=== PATIENT | female | born 1955 | race Caucasian/White ===

== ENCOUNTER → 2019-12-13 08:01 | Outpatient (CLI) | payer MEDICARE, OTHER, SELFPAY ==
[2019-12-13 09:29] LABS: Add Manual Diff / Slide Review NO; Basophils Absolute Auto 100 /uL (0-100); Basophils Percent Auto 1.1 % (0-2); Eosinophils Absolute Auto 100 /uL (0-450); Eosinophils Percent Auto 2.6 % (2-4); Hematocrit 38.3 % (36-46); Hemoglobin 13.1 g/dL (12.0-16.0); Lymphocytes Absolute Auto 1600 /uL (1100-4500); Lymphocytes Percent Auto 28.7 % (25-40); Mean Corpuscular HGB Conc 34.3 % (30-36); Mean Corpuscular Volume 93.5 fL (80-100); Monocytes Absolute Auto 400 /uL (0-900); Monocytes Percent Auto 7.5 % (3-14); Neutrophils Absolute Auto 3400 /uL (1500-7000); Neutrophils Percent Auto 60.1 % (50-75); Platelet Count 396 X10^3/uL (150-400); Red Cell Distribution Width 12.9 % (11.6-14.8); White Blood Cell Count 5.6 X10^3/uL (4.5-11.0)
[2019-12-13 10:03] LABS: Alanine Aminotransferase 29 IU/L (<35); Albumin 4.4 g/dL (3.5-5.0); Albumin Globulin Ratio 1.5 (1.0-2.8); Alkaline Phosphatase 85 U/L (38-126); Aspartate Aminotransferase 28 IU/L (14-36); BUN Creatinine Ratio 22.5 (6-22); Bilirubin Total 0.4 mg/dL (0.2-1.3); Blood Urea Nitrogen 16 mg/dL (7-17); Calcium 9.9 mg/dL (8.4-10.2); Carbon Dioxide 30 mmol/L (22-32); Chloride 102 mmol/L (98-107); Estimated Glomerular Filt Rate > 60.0 mL/min (>60); Glucose 110 mg/dL (80-110); HEMOLYSIS < 15 (0-50); Potassium 5.1 mmol/L (3.4-5.1); Sodium 137 mmol/L (137-145); Total Protein 7.4 g/dL (6.3-8.2)
== END ==
PROVIDERS: PCP Nurse Practitioner Family; Referring Provider Nurse Practitioner Family; Visit Provider Nurse Practitioner Family
DX: I10 Essential (primary) hypertension (principal)
CPT/HCPCS: 36415; 80053; 84443; 85025

== ENCOUNTER → 2020-01-29 10:10 | Outpatient (CLI) | payer MEDICARE, OTHER, SELFPAY ==
--- NOTE | 2020-01-29 10:12 | DI.US.S_ITS ---
PROCEDURE: US ABDOMEN COMPLETE INDICATIONS: LEFT UPPER QUADRANT PAIN TECHNIQUE: Real-time scanning was performed of the abdominal and retroperitoneal organs, with image documentation. COMPARISON: None. FINDINGS: Liver: Liver is normal in size and homogeneous in echotexture. Gallbladder: No findings of gallstones or sludge are seen. The gallbladder wall is not thickened, measuring 3 mm or less. No specific pericholecystic fluid is seen. The sonographic Sifuentes sign is negative. Biliary ducts: Intrahepatic bile ducts are non-dilated. Extrahepatic bile duct caliber measures 5 mm. Normal is 6-7 mm or less in diameter, or 10 mm or less post-cholecystectomy. Pancreas: Visualized portions of the pancreas are sonographically normal. Spleen: Spleen is normal in size and homogeneous in echotexture. Kidneys: Kidneys are normal in size and echotexture. Right kidney measures 9.3 cm long; left kidney measures 10.3 cm long. No hydronephrosis or nephrolithiasis. No solid masses. Cortex Aorta: Visualized aorta is normal in caliber at less than 3 cm. Iliacs: Proximal common iliac arteries are normal in caliber at less than 2.5 cm. IVC: Not seen, obscured by overlying bowel gas. Miscellaneous: No free abdominal fluid. IMPRESSION: Negative ultrasound, without an imaging explanation found for the patient's presenting history of left upper quadrant pain. Normal appearing, normal sized spleen. Normal left kidney, without hydronephrosis. Dictated by: Victor M Best M.D. on 01/29/2020 at 12:35 Approved by: Victor M Best M.D. on 01/29/2020 at 12:36
--- NOTE | 2020-01-29 10:12 | DI.MG.S_ITS ---
BILATERAL DIGITAL SCREENING MAMMOGRAM 3D/2D WITH CAD: 01/29/2020 CLINICAL: Routine screening. Family history of breast cancer. Comparison is made to exams dated: 12/07/2016 mammogram and 12/18/2015 mammogram - outside location. There are scattered fibroglandular elements in both breasts. Current study was also evaluated with a Computer Aided Detection (CAD) system. No significant masses, calcifications, or other findings are seen in either breast. There has been no significant interval change. IMPRESSION: NEGATIVE There is no mammographic evidence of malignancy. A 1 year screening mammogram is recommended. This exam was interpreted at Station ID: [id number]. NOTE: For mammograms, a report in lay terms will be sent to the patient. Approximately 15% of breast malignancies will not be visualized mammographically. In the management of a palpable breast mass, a negative mammogram must not discourage biopsy of a clinically suspicious lesion. Electronically Signed By: Tye carson/rudolph:01/29/2020 13:12:30 letter sent: Normal Exam ACR BI-RADS Category 1: Negative 3341F
--- NOTE | 2020-01-29 10:12 | DI.RAD.S_ITS ---
PROCEDURE: XR DEXA AXIAL SKELETON INDICATIONS: screening COMPARISON: None. FINDINGS: This blank DEXA report has been sent in error by the PACS system. The correct and complete report will be forthcoming in 1-2 days. Thank you for your patience and understanding. Dictated by: Stephanie Hanna MD, PhD on 01/29/2020 at 17:20 Approved by: Stephanie Hanna MD, PhD on 01/29/2020 at 17:20
[2020-01-29 14:03] LABS: Hematocrit 40.9 % (36-46); Hemoglobin 13.5 g/dL (12.0-16.0); Mean Corpuscular Hemoglobin 31.5 PG (26-34); Mean Corpuscular Volume 95.2 fL (80-100); Platelet Count 396 X10^3/uL (150-400); Red Blood Cell Count 4.29 X10^6/uL (4.0-5.2); Red Cell Distribution Width 15.4 % (11.6-14.8); White Blood Cell Count 5.6 X10^3/uL (4.5-11.0)
[2020-01-29 14:38] LABS: Alanine Aminotransferase 22 IU/L (<35); Albumin 4.3 g/dL (3.5-5.0); Albumin Globulin Ratio 1.4 (1.0-2.8); Alkaline Phosphatase 94 U/L (38-126); Aspartate Aminotransferase 28 IU/L (14-36); BUN Creatinine Ratio 26.9 (6-22); Bilirubin Total 0.6 mg/dL (0.2-1.3); Blood Urea Nitrogen 18 mg/dL (7-17); Calcium 9.7 mg/dL (8.4-10.2); Carbon Dioxide 30 mmol/L (22-32); Chloride 102 mmol/L (98-107); Cholesterol 195 mg/dL (140-199); Estimated Glomerular Filt Rate > 60.0 mL/min (>60); Globulin 3.1 g/dL (1.7-4.1); Glucose 98 mg/dL (80-110); HDL Cholesterol 101 mg/dL (40-60); HEMOLYSIS < 15 (0-50); LDL Cholesterol Calculated 73 mg/dL (<100); Potassium 4.8 mmol/L (3.4-5.1); Sodium 135 mmol/L (137-145); Total Protein 7.4 g/dL (6.3-8.2); Triglycerides 106 mg/dL (35-150)
== END ==
PROVIDERS: PCP Nurse Practitioner Family; Referring Provider Nurse Practitioner Family; Visit Provider Nurse Practitioner Family
DX: Z12.31 Encounter for screening mammogram for malignant neoplasm of breast; Z80.3 Family history of malignant neoplasm of breast; M85.851 Other specified disorders of bone density and structure, right thigh; Z78.0 Asymptomatic menopausal state; R10.12 Left upper quadrant pain; I10 Essential (primary) hypertension; R42 Dizziness and giddiness; Z13.6 Encounter for screening for cardiovascular disorders; Z00.00 Encounter for general adult medical examination without abnormal findings; Z90.722 Acquired absence of ovaries, bilateral; Z87.891 Personal history of nicotine dependence
CPT/HCPCS: 36415; 76700; 77063; 77067; 77080; 80053; 80061; 85027

== ENCOUNTER → 2020-12-17 11:10 | Outpatient (CLI) | payer MEDICARE, OTHER, SELFPAY ==
[2020-12-17 12:00] LABS: Hematocrit 40.9 % (36-46); Hemoglobin 13.9 g/dL (12.0-16.0); Mean Corpuscular HGB Conc 33.9 % (30-36); Mean Corpuscular Hemoglobin 32.9 PG (26-34); Platelet Count 360 X10^3/uL (150-400); Red Blood Cell Count 4.22 X10^6/uL (4.0-5.2); Red Cell Distribution Width 13.9 % (11.6-14.8); White Blood Cell Count 5.3 X10^3/uL (4.5-11.0)
[2020-12-17 12:35] LABS: Alanine Aminotransferase 23 IU/L (<35); Albumin 4.8 g/dL (3.5-5.0); Albumin Globulin Ratio 1.5 (1.0-2.8); Alkaline Phosphatase 67 U/L (38-126); Aspartate Aminotransferase 30 IU/L (14-36); Bilirubin Total 0.5 mg/dL (0.2-1.3); Blood Urea Nitrogen 20 mg/dL (7-17); Calcium 10.5 mg/dL (8.4-10.2); Carbon Dioxide 35 mmol/L (22-32); Chloride 100 mmol/L (98-107); Estimated Glomerular Filt Rate > 60.0 mL/min (>60); Globulin 3.1 g/dL (1.7-4.1); Glucose 108 mg/dL (80-110); HEMOLYSIS 17 (0-50); Potassium 4.8 mmol/L (3.4-5.1); Sodium 140 mmol/L (137-145); Total Protein 7.9 g/dL (6.3-8.2)
== END ==
PROVIDERS: PCP Nurse Practitioner Family; Referring Provider Nurse Practitioner Family; Visit Provider Nurse Practitioner Family
DX: I10 Essential (primary) hypertension (principal)
CPT/HCPCS: 36415; 80053; 85027

== ENCOUNTER → 2021-01-30 11:29 | Outpatient (CLI) | payer MEDICARE, OTHER, SELFPAY ==
[2021-01-30 14:14] LABS: HEMOLYSIS < 15 (0-50); Iron 128 ug/dL (37-170)
[2021-01-30 14:25] LABS: Percent Iron Saturation 49 % (15-50); Total Iron Binding Capacity 260 ug/dL (265-497); Transferrin 234 mg/dL (206-381)
[2021-01-30 14:33] LABS: Free T4, Direct Thyroxine 0.95 ng/dL (0.78-2.19)
[2021-01-30 14:47] LABS: Thyroid Stimulating Hormone 2.86 uIU/mL (0.47-4.68)
[2021-01-30 18:25] LABS: Vitamin D 25 Hydroxy (D3) 57.2 ng/mL (30.0-100.0)
[2021-01-30 18:44] LABS: Ferritin 237 ng/mL (11-264)
== END ==
PROVIDERS: PCP Nurse Practitioner Family; Referring Provider Nurse Practitioner Family; Visit Provider Nurse Practitioner Family
DX: L65.9 Nonscarring hair loss, unspecified (principal); M85.80 Other specified disorders of bone density and structure, unspecified site
CPT/HCPCS: 36415; 82306; 82728; 83540; 83550; 84439; 84443

== ENCOUNTER → 2021-09-16 13:32 | Outpatient (CLI) | payer MEDICARE, OTHER, SELFPAY ==
[2021-09-16 14:55] LABS: COVID19 -Nasal RAPID Negative (Negative)
== END ==
PROVIDERS: Family Provider Nurse Practitioner; PCP Nurse Practitioner; Visit Provider Surgery
DX: Z20.822 Contact with and (suspected) exposure to COVID-19 (principal); Z01.812 Encounter for preprocedural laboratory examination
CPT/HCPCS: 87635; C9803

== ENCOUNTER 2021-09-17 13:27 | Day surgery (SDC) | payer MEDICARE, OTHER, SELFPAY ==
[2021-09-17 13:43] VITALS: BP 155/89; PULSE 77; RESP 18; TEMP 36.4; O2SAT 99
[2021-09-17] MEDS: LACTATED RINGERS 1,000 ML 84 ML IV (13:43)
[2021-09-17 13:44] VITALS: BMI 25.8
--- NOTE | 2021-09-17 15:23 | PM.HP.1 ---
History of Present Illness History of Present Illness Date Patient Seen: 09/17/21 Time Patient Seen: 15:24 Chief complaint: [facility] Narrative: Hannah is a 65-year-old woman who is here for colonoscopy. She had a colonoscopy 10 or 15 years ago with no polyps found. Patient History Medical History Acne (~1968) Essential hypertension (2005) Fibroids (~2000) Hair loss (09/2020) Hx of rotator cuff tear (2012) Intermittent left upper quadrant abdominal pain (08/2019) Intermittent lightheadedness Osteopenia (01/2020) Post-menopausal Shoulder pain (~2017) Vertigo (~2014) Wears glasses Weight gain Surgical History Anesthesia Hx of hysterectomy (2003) Hx of repair of rotator cuff (2012) Family & Social History Family History Father Age: 93 Diabetes mellitus Pacemaker Stroke Mother Cancer Brother No problems noted. Grandfather Diabetes mellitus Hypertension Hyperlipidemia Social History: household members spouse Tobacco & Substance use: Smoking Status Former smoker alcohol intake current Substance Use Type does not use Meds Home Medications and Allergies Home Medications Medication Instructions Recorded Confirmed Type Magnesium PO DAILY 12/12/19 07/20/21 History Vitamin B12 PO DAILY 12/12/19 07/20/21 History Vitamin C PO 12/12/19 07/20/21 History Vitamin D3 PO DAILY 12/12/19 07/20/21 History Zinc PO DAILY 12/12/19 07/20/21 History aspirin 81 mg tablet,delayed 81 mg PO DAILY 12/12/19 09/17/21 History release (Adult Aspirin Regimen) milk thistle PO DAILY 12/12/19 07/20/21 History multivitamin 1 tab PO DAILY 12/12/19 07/20/21 History losartan 50 mg tablet 50 mg PO DAILY #90 tabs 07/20/21 07/20/21 Rx Allergies Allergy/AdvReac Type Severity Reaction Status Date / Time No Known Allergies Allergy Uncoded 09/17/21 13:37 Exam Vital Signs (past 8 hours): - 09/17/21 13:43 Temperature 97.6 F Pulse Rate 77 Respiratory Rate 18 Blood Pressure 155/89 H Pulse Oximetry 99 Oxygen Delivery Method Room Air Oxygen Delivery Method Room Air Const General: No acute distress Resp Effort & Inspection: normal respiratory effort GI Palpation: soft Assessment & Plan Assessment and plan (1) Colon cancer screening: Status: Acute Plan 65-year-old woman due for colon cancer screening. We reviewed the risks and benefits of colonoscopy and she would like to proceed. Time Spent With Patient Critical Care time: I spent a total of [] minutes of critical care time on this patient's care today; this time is exclusive of procedural time.
[2021-09-17] MEDS: MIDAZOLAM 5 MG/5 ML VIAL 7 MG IV (15:41)
[2021-09-17] MEDS: fentaNYL 250 MCG/5 ML INJ 175 MCG IV (15:43)
--- NOTE | 2021-09-17 15:54 | PM.OP.COLON ---
Operative Date/Time/Diagnoses Date of procedure: 09/17/21 Time of procedure: 15:54 Pre-op diagnosis: Colon cancer screening Post-op diagnosis: same Procedure & Clinicians Study performed: Colonoscopy Same procedure as scheduled: Yes Surgeon: Tristen Ochoa Procedure Notes Procedure in detail: Surgeon: Tristen Ochoa MD Procedure: The patient was brought to the endoscopy suite, placed in left lateral decubitus position. The patient was connected to monitoring devices. A time-out was performed. Sedation was administered. Once the patient was adequately sedated, a digital rectal exam was performed and was normal. The scope was then inserted and advanced to the cecum where the appendiceal orifice was identified and photographed. The scope was then slowly withdrawn over greater than 6 minutes. The mucosa was thoroughly inspected. No abnormalities were noted. The scope was retroflexed in the rectum. No abnormalities were noted. The scope was straightened and removed. The patient was awakened and brought to recovery. Versed: 7 mg Fentanyl: 175 mcg EBL: 0 Findings: Normal colon Scope withdrawal time: 8 Sedation minutes: 22 Post-procedure Recommendations: Colonoscopy in 10 years Disposition: PACU
[2021-09-17 15:57] VITALS: BP 121/76; PULSE 77; RESP 14; TEMP 36.9; O2SAT 97
[2021-09-17 16:02] VITALS: BP 133/81; PULSE 77; RESP 14; O2SAT 98
[2021-09-17 16:07] VITALS: BP 134/82; PULSE 74; RESP 16; O2SAT 100
[2021-09-17 16:19] VITALS: BP 133/80; PULSE 71; RESP 16; O2SAT 100
--- NOTE | 2021-09-17 16:21 | SUR.PHASEII ---
Discharge instructions reviewed with pt, and time allowed for questions. Pt left unit A&Ox4, via w/c with all personal belongings.
== END 2021-09-17 16:22 | disposition home or self-care (01) ==
PROVIDERS: Family Provider Nurse Practitioner; PCP Nurse Practitioner; Referring Provider Surgery; Visit Provider Surgery
PROC: 0DJD8ZZ Inspection of Lower Intestinal Tract, Via Natural or Artificial Opening Endoscopic (ICD-10-PCS; CPT 45378; principal; 2021-09-17 14:30)
DX: Z12.11 Encounter for screening for malignant neoplasm of colon (principal)
CPT/HCPCS: G0105; 99152; J2250; J3010

== ENCOUNTER → 2021-10-07 14:03 | Outpatient (CLI) | payer MEDICARE, OTHER, SELFPAY ==
--- NOTE | 2021-10-07 14:05 | DI.MG.S_ITS ---
BILATERAL DIGITAL SCREENING MAMMOGRAM 3D/2D WITH CAD: 10/07/2021 CLINICAL: Routine screening. Family history of breast cancer. Comparison is made to exams dated: 01/29/2020 mammogram - [facility], 12/07/2016 mammogram, and 12/18/2015 mammogram - outside location. The tissue of both breasts is heterogeneously dense. This may lower the sensitivity of mammography. Current study was also evaluated with a Computer Aided Detection (CAD) system. No significant masses, calcifications, or other findings are seen in either breast. There has been no significant interval change. IMPRESSION: NEGATIVE There is no mammographic evidence of malignancy. A 1 year screening mammogram is recommended. Based on Tyrer-Cuzick model (a risk assessment model), the patient's lifetime risk is 22.0% and her 10 year risk is 11.5%. If a patient has an elevated risk, a more comprehensive evaluation should be considered and/or a referral to a genetic counselor. The [place] [employer], [place] [employer], and NCCN Guidelines advise the consideration of Breast MRI as an adjunct to screening mammography in patients whose Lifetime risk to develop breast cancer is 20% or higher. This exam was interpreted at Station ID: [id number]. NOTE: For mammograms, a report in lay terms will be sent to the patient. Approximately 15% of breast malignancies will not be visualized mammographically. In the management of a palpable breast mass, a negative mammogram must not discourage biopsy of a clinically suspicious lesion. Electronically Signed By: Dheeraj hylton/rudolph:10/07/2021 17:49:12 letter sent: Normal Exam ACR BI-RADS Category 1: Negative [id number]
== END ==
PROVIDERS: Family Provider Nurse Practitioner; PCP Nurse Practitioner; Referring Provider Nurse Practitioner; Visit Provider Nurse Practitioner
DX: Z12.31 Encounter for screening mammogram for malignant neoplasm of breast; Z80.3 Family history of malignant neoplasm of breast; Z13.820 Encounter for screening for osteoporosis; M85.851 Other specified disorders of bone density and structure, right thigh; M85.852 Other specified disorders of bone density and structure, left thigh; Z78.0 Asymptomatic menopausal state
CPT/HCPCS: 77063; 77067; 77080

== ENCOUNTER 2021-11-03 11:15 | Outpatient (RCR) | payer MEDICARE, OTHER, SELFPAY ==
--- NOTE | 2021-10-06 11:22 | PT.OIE ---
Current Diagnoses Low back pain, unspecified (10/06/21) Pain in right leg (10/06/21) Past Medical History (Last Reviewed 09/17/21 @ 13:37 by Hannah Lepe RN) Acne (~1968) Essential hypertension (2005) Fibroids (~2000) Hair loss (09/2020) Hx of rotator cuff tear (2012) Intermittent left upper quadrant abdominal pain (08/2019) Intermittent lightheadedness Osteopenia (01/2020) Post-menopausal Shoulder pain (~2017) Vertigo (~2014) Wears glasses Weight gain Past Surgical History (Last Reviewed 07/20/21 @ 13:00 by DAPHNE Pretty) Anesthesia Hx of hysterectomy (2003) Hx of repair of rotator cuff (2012) Visit Care Team Role Provider Type DAPHNE Pretty Attending Provider Advanced Cable Engineer Family Provider Primary Care Provider Referring Provider Specialty: Family Practice Address: [address] [place] [address] Email: [email or web address] Physical Therapy Initial Evaluation PT-OP-A Visit Information Start: 10/06/21 08:03 Freq: Status: Active Protocol: Document 10/06/21 11:22 [facility] (Rec: 10/07/21 16:45 [facility] [id number]) Out-Patient Physical Therapy Visit Information Visit Information Visit Type Initial Evaluation Visit Start Time 11:17 Visit Stop Time 12:02 Total Visit Minutes 45 Visit Number 1 Evaluation Information Evaluation Date 10/06/21 Precautions Precautions osteopenia PT-OP-B Current Condition Start: 10/06/21 08:03 Freq: Status: Active Protocol: Document 10/06/21 11:22 [facility] (Rec: 10/06/21 12:06 [facility] [id number]) Current Condition History of Current Condition Onset Date 1 1/2 years ago Current Complaints lateral right thigh pain History of Current Condition comes and goes throughout the day and while in bed. Can't pinpoint what inc or dec pain. Hasn't tried ice or heat or medications Prior Treatments and Tests No imaging Future Testing and Treatments Planned No further appointment scheduled with physician Treatment Goals Patient/Caregiver Goals eliminate pain, be able to sleep through the night, do usual activities without pain. Prior Functional Status Baseline Function- ADL's Independent Baseline Function- Mobility Independent Baseline Function- Gait indep Baseline Function- Work/School retired, worked in [employer] industry in [place] PT-OP-C Subjective Start: 10/06/21 08:03 Freq: Status: Active Protocol: Document 10/06/21 11:22 [facility] (Rec: 10/07/21 17:09 [facility] [id number]) Patient Questionnaires Oswestry Low Back Index Oswestry Score 14 PT-OP-H Neuro Start: 10/06/21 08:03 Freq: Status: Active Protocol: Document 10/06/21 11:22 [facility] (Rec: 10/07/21 17:09 [facility] [id number]) Sensation Evaluation Gross Sensation Gross Sensation WNL Comments Summary Comments denies N/T PT-OP-J Posture/Palpation/Skin Start: 10/06/21 08:03 Freq: Status: Active Protocol: Document 10/06/21 11:22 [facility] (Rec: 10/07/21 17:09 [facility] [id number]) Posture Evaluation Position Standing Head/C-Spine Posture Forward Head T-Spine Posture Increased Kyphosis L-Spine Posture Shifted Right Scapula Posture (R) Protracted,(L) Retracted Arm Posture (L) Internally Rotated,(R) Internally Rotated Pelvis Posture Anteriorly Tilted Weight Distribution Weight Shifted Right Ankle/Foot Posture (L) Pronated,(R) Pronated Foot Arch (L) Low Arch,(R) Low Arch Palpation Assessment Location IT band Palpation Location rodolfo Palpation Findings Tenderness SI Palpation Location right Palpation Details no tenderness today PT-OP-K Range of Motion Start: 10/06/21 08:03 Freq: Status: Active Protocol: Document 10/06/21 11:22 [facility] (Rec: 10/07/21 17:09 [facility] [id number]) Lumbar Spine Range of Motion Lumbar Spine Active Flexion 40 Extension 15 Rotation Left 30 Rotation Right 30 Lateral Flexion Left 25 Lateral Flexion Right 25 Comments pain with right sidebending and forward flexion Hip Goniometric Range of Motion Hip rodolfo Comments mod piriformis tightness right greater than left, mild hamstring tightness left greater than right Hip ROM Limitations Hip ROM Limitations Soft Tissue Tightness,Pain PT-OP-L Special Tests Start: 10/06/21 08:03 Freq: Status: Active Protocol: Document 10/06/21 11:22 [facility] (Rec: 10/07/21 17:09 [facility] [id number]) Special Tests Lumbar Spine Special Tests Manual Traction Test Results negative Straight Leg Raise Test Results negative Compression Test Results negative PT-OP-M Strength Start: 10/06/21 08:03 Freq: Status: Active Protocol: Document 10/06/21 11:22 [facility] (Rec: 10/07/21 17:09 [facility] [id number]) Hip Strength Hip Manual Muscle Testing Right Flexion (L2) 4- Good- Extension (S1) 3+ Fair+ Abduction 4- Good- External Rotation 3+ Fair+ Internal Rotation 4 Good Left Flexion (L2) 4- Good- Extension (S1) 3+ Fair+ Abduction 4- Good- External Rotation 4- Good- Internal Rotation 4 Good Knee Strength Knee Manual Muscle Testing Right Flexion (S2) 4 Good Extension (L3) 4 Good Left Flexion (S2) 5 Normal Extension (L3) 5 Normal Ankle/Foot Strength Ankle and Foot Manual Muscle Testing Right Dorsiflexion (L4) 4 Good Plantarflexion (S1) 4 Good Left Dorsiflexion (L4) 5 Normal Plantarflexion (S1) 5 Normal PT-OP-Q Treatments Start: 10/06/21 08:03 Freq: Status: Active Protocol: Document 10/06/21 11:22 [facility] (Rec: 10/07/21 17:09 [facility] [id number]) Self-Care/Home Management Treatment Education Patient Education Body Mechanics,Home Exercise Program,Posture Activities Self-Care/Home Management Activities self assessment of habitual postures and movements PT-OP-T Assessment and Plan Start: 10/06/21 08:03 Freq: Status: Active Protocol: Document 10/06/21 11:22 [facility] (Rec: 10/06/21 12:06 [facility] [id number]) Physical Therapy Assessment Rehab Potential Rehabilitation Potential Good Evaluation Complexity Number of Personal Factors/Comorbidities 1-2 Number of Body Systems Impaired 3 Clinical Presentation at Evaluation Evolving Impairments Impairments Activity Tolerance,Pain, Strength Goals Three Impairment habitual body positioning contributing to pain and dysfunction Short Term Goal (STG) Patient to do self-assessment regarding her habitual positioning and movement and discuss with PT STG Duration 10/19/21 [facility] Goal (LTG) Patient will demonstrate good awareness and self-correction of habitual positioning and movements contributing to her pain LTG Duration 12/06/21 Two Impairment weakness rodolfo LE's and core, dec ROM Impairment no HEP Short Term Goal (STG) Patient will be instructed in progressiveHEP to address weakness and decreased flexibility STG Duration 10/19/21 Early Childhood Associate Goal (LTG) Patient to be independent and compliant with HEP and demonstrate improved strength to at least 4+/5 all muscle groups in core and hips, and flexiblity WNL for improved support and function of core and hips. LTG Duration 12/06/21 One Impairment pain right lateral thigh Impairment pain as high as 6/10 Short Term Goal (STG) Decrease intensity and frequency of pain by 50% STG Duration 11/05/21 Early Childhood Associate Goal (LTG) Pain no higher than 2/10 with patient able to sleep through the night and resume prior level of function. LTG Duration 12/06/21 Assessment Summary Assessment Patient presents to PT with funciton-limiting pain in her right lateral thigh of unknown origin and denies any accident or trauma. 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 Also was observed only crossing right leg over left throughout session , reports she wasn't aware of that habit but can see how habitual posturing and movement could contribute to her pain. Has osteopenia, history LBP, arthritis in hands. Pain into buttock with FF and right sidebending. NOt tender SI joint but has been in past. Weak hip ER, flexors, abductors, extensors tight IT band left, tenderness right greater than left IT band. Feel she would benefit from PT for flexibility and strengthening, patient education, manual techniques and modalities as needed to reduce her pain and return her to her prior level of function. Discussed POC and patient is in agreement. Physical Therapy Plan Frequency and Duration Frequency of Treatment 2x/Week Duration of Treatment 8 weeks Plan of Care Start Date 10/06/21 Plan of Care End Date 12/06/21 Therapeutic Interventions Therapeutic Interventions Aquatic Therapy,Home Exercise Program,Manual Therapy, Neuromuscular Re-education, Patient/Caregiver Education, Self-Care/Home Management,Soft Tissue Mobilization,Taping, Therapeutic Activities, Therapeutic Exercises Modalities Cold Pack/Ice Massage,Electric Stimulation,Hot Packs, Infrared Therapy,Traction- Mechanical,Ultrasound Next Visit Focus/Plan Next Note Type Treatment Note Next Visit Plan Review HEP, discuss any identified habitual postures or movements, initiate core strengthening, add clamshells. Possible manual therapy to IT band. Modalities as needed for pain.
--- NOTE | 2021-10-06 11:22 | PT.OPPOC ---
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 Family Provider Primary Care Provider Referring Provider Specialty: Family Practice Address: [address] [place] [address], [facility] Email: [email or web address] Plan Of Care PT-OP-T Assessment and Plan Start: 10/06/21 08:03 Freq: Status: Active Protocol: Document 10/06/21 11:22 [facility] (Rec: 10/06/21 12:06 [facility] [id number]) Physical Therapy Assessment Rehab Potential Rehabilitation Potential Good Evaluation Complexity Number of Personal Factors/Comorbidities 1-2 Number of Body Systems Impaired 3 Clinical Presentation at Evaluation Evolving Impairments Impairments Activity Tolerance,Pain, Strength Goals Three Impairment habitual body positioning contributing to pain and dysfunction Short Term Goal (STG) Patient to do self-assessment regarding her habitual positioning and movement and discuss with PT STG Duration 10/19/21 [facility] Goal (LTG) Patient will demonstrate good awareness and self-correction of habitual positioning and movements contributing to her pain LTG Duration 12/06/21 Two Impairment weakness rodolfo LE's and core, dec ROM Impairment no HEP Short Term Goal (STG) Patient will be instructed in progressiveHEP to address weakness and decreased flexibility STG Duration 10/19/21 [facility] Goal (LTG) Patient to be independent and compliant with HEP and demonstrate improved strength to at least 4+/5 all muscle groups in core and hips, and flexiblity WNL for improved support and function of core and hips. LTG Duration 12/06/21 One Impairment pain right lateral thigh Impairment pain as high as 6/10 Short Term Goal (STG) Decrease intensity and frequency of pain by 50% STG Duration 11/05/21 [facility] Goal (LTG) Pain no higher than 2/10 with patient able to sleep through the night and resume prior level of function. LTG Duration 12/06/21 Assessment Summary Assessment Patient presents to PT with funciton-limiting pain in her right lateral thigh of unknown origin and denies any accident or trauma. 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 Also was observed only crossing right leg over left throughout session , reports she wasn't aware of that habit but can see how habitual posturing and movement could contribute to her pain. Has osteopenia, history LBP, arthritis in hands. Pain into buttock with FF and right sidebending. NOt tender SI joint but has been in past. Weak hip ER, flexors, abductors, extensors tight IT band left, tenderness right greater than left IT band. Feel she would benefit from PT for flexibility and strengthening, patient education, manual techniques and modalities as needed to reduce her pain and return her to her prior level of function. Discussed POC and patient is in agreement. Physical Therapy Plan Frequency and Duration Frequency of Treatment 2x/Week Duration of Treatment 8 weeks Plan of Care Start Date 10/06/21 Plan of Care End Date 12/06/21 Therapeutic Interventions Therapeutic Interventions Aquatic Therapy,Home Exercise Program,Manual Therapy, Neuromuscular Re-education, Patient/Caregiver Education, Self-Care/Home Management,Soft Tissue Mobilization,Taping, Therapeutic Activities, Therapeutic Exercises Modalities Cold Pack/Ice Massage,Electric Stimulation,Hot Packs, Infrared Therapy,Traction- Mechanical,Ultrasound Next Visit Focus/Plan Next Note Type Treatment Note Next Visit Plan Review HEP, discuss any identified habitual postures or movements, initiate core strengthening, add clamshells. Possible manual therapy to IT band. Modalities as needed for pain. Plan of Care Dates Plan of Care Start Date 10/06/21 Plan of Care End Date 12/06/21 Electronically Signed by: Claudette Bennett, PT 10/07/21 [id number] If you are in agreement with this Plan of Care, please return a signed and dated copy. I have reviewed this Plan of Care and certify that the skilled therapy services above are required to meet the patient?s needs. Physician Signature Date Printed Name and Credentials Clinical Instructor Signature Printed Name and Credentials
--- NOTE | 2021-10-08 13:44 | PT.OTN ---
Current Diagnoses Low back pain, unspecified (10/08/21) Pain in right leg (10/08/21) Physical Therapy Treatment Note PT-OP-A Visit Information Start: 10/06/21 08:03 Freq: Status: Active Protocol: Document 10/08/21 11:24 SAK (Rec: 10/08/21 12:01 [facility] [id number]) Out-Patient Physical Therapy Visit Information Visit Information Visit Type Treatment Note Visit Start Time 11:20 Visit Stop Time 12:00 Total Visit Minutes 40 Visit Number 2 Evaluation Information Evaluation Date 10/06/21 Precautions Precautions osteopenia PT-OP-B Current Condition Start: 10/06/21 08:03 Freq: Status: Active Protocol: Document 10/08/21 11:24 SAK (Rec: 10/08/21 12:01 [facility] [id number]) Current Condition History of Current Condition Onset Date 1 1/2 years ago Current Complaints lateral right thigh pain History of Current Condition comes and goes throughout the day and while in bed. Can't pinpoint what inc or dec pain. Hasn't tried ice or heat or medications Prior Treatments and Tests No imaging Future Testing and Treatments Planned No further appointment scheduled with physician PT-OP-C Subjective Start: 10/06/21 08:03 Freq: Status: Active Protocol: Document 10/06/21 11:22 SAK (Rec: 10/07/21 17:09 [facility] [id number]) Patient Questionnaires Oswestry Low Back Index Oswestry Score 14 PT-OP-H Neuro Start: 10/06/21 08:03 Freq: Status: Active Protocol: Document 10/06/21 11:22 SAK (Rec: 10/07/21 17:09 [facility] [id number]) Sensation Evaluation Gross Sensation Gross Sensation WNL Comments Summary Comments denies N/T PT-OP-J Posture/Palpation/Skin Start: 10/06/21 08:03 Freq: Status: Active Protocol: Document 10/06/21 11:22 SAK (Rec: 10/07/21 17:09 [facility] [id number]) Posture Evaluation Position Standing Head/C-Spine Posture Forward Head T-Spine Posture Increased Kyphosis L-Spine Posture Shifted Right Scapula Posture (R) Protracted,(L) Retracted Arm Posture (L) Internally Rotated,(R) Internally Rotated Pelvis Posture Anteriorly Tilted Weight Distribution Weight Shifted Right Ankle/Foot Posture (L) Pronated,(R) Pronated Foot Arch (L) Low Arch,(R) Low Arch Palpation Assessment Location IT band Palpation Location rodolfo Palpation Findings Tenderness SI Palpation Location right Palpation Details no tenderness today PT-OP-K Range of Motion Start: 10/06/21 08:03 Freq: Status: Active Protocol: Document 10/06/21 11:22 [facility] (Rec: 10/07/21 17:09 [facility] [id number]) Lumbar Spine Range of Motion Lumbar Spine Active Flexion 40 Extension 15 Rotation Left 30 Rotation Right 30 Lateral Flexion Left 25 Lateral Flexion Right 25 Comments pain with right sidebending and forward flexion Hip Goniometric Range of Motion Hip rodolfo Comments mod piriformis tightness right greater than left, mild hamstring tightness left greater than right Hip ROM Limitations Hip ROM Limitations Soft Tissue Tightness,Pain PT-OP-L Special Tests Start: 10/06/21 08:03 Freq: Status: Active Protocol: Document 10/06/21 11:22 [facility] (Rec: 10/07/21 17:09 [facility] [id number]) Special Tests Lumbar Spine Special Tests Manual Traction Test Results negative Straight Leg Raise Test Results negative Compression Test Results negative PT-OP-M Strength Start: 10/06/21 08:03 Freq: Status: Active Protocol: Document 10/06/21 11:22 [facility] (Rec: 10/07/21 17:09 [facility] [id number]) Hip Strength Hip Manual Muscle Testing Right Flexion (L2) 4- Good- Extension (S1) 3+ Fair+ Abduction 4- Good- External Rotation 3+ Fair+ Internal Rotation 4 Good Left Flexion (L2) 4- Good- Extension (S1) 3+ Fair+ Abduction 4- Good- External Rotation 4- Good- Internal Rotation 4 Good Knee Strength Knee Manual Muscle Testing Right Flexion (S2) 4 Good Extension (L3) 4 Good Left Flexion (S2) 5 Normal Extension (L3) 5 Normal Ankle/Foot Strength Ankle and Foot Manual Muscle Testing Right Dorsiflexion (L4) 4 Good Plantarflexion (S1) 4 Good Left Dorsiflexion (L4) 5 Normal Plantarflexion (S1) 5 Normal PT-OP-Q Treatments Start: 10/06/21 08:03 Freq: Status: Active Protocol: Document 10/08/21 11:24 [facility] (Rec: 10/08/21 12:01 [facility] [id number]) Cardio Equipment Recumbent Stepper (Sci-Fit) Duration (Minutes) 6 Resistance 1 Seat Position 10 Other cues for neutral LE alignment, second 3 min LE's only Therapeutic Exercises Supine Exercises bridge Reps/Minutes 10x Comments cues for core activation straight leg raise Reps/Minutes 10x Comments cues for push down opp LE, core act ball squeeze Reps/Minutes 10x Comments cues for neutral spine, core activation, neutral LE's Sidelying Exercises hiip abduction Reps/Minutes 10x Comments cues for pain-free ROM and relax left shoulder down clamshell Reps/Minutes 10 Comments cues for core activation, no movement of body, difficult on right Standing Exercises hc stretch Standing Exercise Name tried lunge stretch but painful right buttock and excess IR right hip Reps/Minutes 2x30 Comments stair or wall, heel on ground unil Manual Therapy Treatment Soft Tissue Mobilization IT band Mobilization Type Instrument Assisted,Myofascial Release,Rolling Self-Care/Home Management Treatment Education Patient Education Body Mechanics,Home Exercise Program,Pain Management, Posture PT-OP-T Assessment and Plan Start: 10/06/21 08:03 Freq: Status: Active Protocol: Document 10/08/21 11:24 [facility] (Rec: 10/08/21 12:01 [facility] [id number]) Physical Therapy Assessment Goals Three Impairment habitual body positioning contributing to pain and dysfunction Short Term Goal (STG) Patient to do self-assessment regarding her habitual positioning and movement and discuss with PT STG Duration 10/19/21 Jail Goal (LTG) Patient will demonstrate good awareness and self-correction of habitual positioning and movements contributing to her pain LTG Duration 12/06/21 Two Impairment weakness rodolfo LE's and core, dec ROM Impairment no HEP Short Term Goal (STG) Patient will be instructed in progressiveHEP to address weakness and decreased flexibility STG Duration 10/19/21 Phd Intern Goal (LTG) Patient to be independent and compliant with HEP and demonstrate improved strength to at least 4+/5 all muscle groups in core and hips, and flexiblity WNL for improved support and function of core and hips. LTG Duration 12/06/21 One Impairment pain right lateral thigh Impairment pain as high as 6/10 Short Term Goal (STG) Decrease intensity and frequency of pain by 50% STG Duration 11/05/21 Phd Intern Goal (LTG) Pain no higher than 2/10 with patient able to sleep through the night and resume prior level of function. LTG Duration 12/06/21 Assessment Summary Assessment Good tolerance for ther ex. Moderate cues for LE alignment , ,noting exess hip IR with lunge on right LE, patient reports due to prior ankle fracture that wasn't set right ; this apears to be highly contributory to patient pain. Mod cues for core activation and stabilization with all ther ex. Physical Therapy Plan Frequency and Duration Frequency of Treatment 2x/Week Duration of Treatment 8 weeks Plan of Care Start Date 10/06/21 Plan of Care End Date 12/06/21 Therapeutic Interventions Therapeutic Interventions Aquatic Therapy,Home Exercise Program,Manual Therapy, Neuromuscular Re-education, Patient/Caregiver Education, Self-Care/Home Management,Soft Tissue Mobilization,Taping, Therapeutic Activities, Therapeutic Exercises Modalities Cold Pack/Ice Massage,Electric Stimulation,Hot Packs, Infrared Therapy,Traction- Mechanical,Ultrasound Next Visit Focus/Plan Next Note Type Treatment Note Next Visit Plan Asses response to today's treatment, review HEP, progress core strengthening and , hip strengthening. Sport cord trial.
--- NOTE | 2021-10-15 11:16 | PT-OP ANOTE ---
cancelled due to missing ferry
--- NOTE | 2021-10-27 12:22 | PT.OTN ---
Current Diagnoses Low back pain, unspecified (10/27/21) Pain in right leg (10/27/21) Physical Therapy Treatment Note PT-OP-A Visit Information Start: 10/06/21 08:03 Freq: Status: Active Protocol: Document 10/27/21 12:11 SAK (Rec: 10/27/21 12:21 [facility] [id number]) Out-Patient Physical Therapy Visit Information Visit Information Visit Type Treatment Note Visit Start Time 11:20 Visit Stop Time 12:05 Total Visit Minutes 45 Visit Number 3 Evaluation Information Evaluation Date 10/06/21 Precautions Precautions osteopenia PT-OP-B Current Condition Start: 10/06/21 08:03 Freq: Status: Active Protocol: Document 10/08/21 11:24 SAK (Rec: 10/08/21 12:01 [facility] [id number]) Current Condition History of Current Condition Onset Date 1 1/2 years ago Current Complaints lateral right thigh pain History of Current Condition comes and goes throughout the day and while in bed. Can't pinpoint what inc or dec pain. Hasn't tried ice or heat or medications Prior Treatments and Tests No imaging Future Testing and Treatments Planned No further appointment scheduled with physician PT-OP-C Subjective Start: 10/06/21 08:03 Freq: Status: Active Protocol: Document 10/27/21 12:11 SAK (Rec: 10/27/21 12:21 [facility] [id number]) OP-PT Subjective Patient Comments Patient Comments Doing exercises every other day, maybe just a little better, not sure. Likes rolling pin, has done at home and is considering muscle gun. PT-OP-H Neuro Start: 10/06/21 08:03 Freq: Status: Active Protocol: Document 10/06/21 11:22 SAK (Rec: 10/07/21 17:09 [facility] [id number]) Sensation Evaluation Gross Sensation Gross Sensation WNL Comments Summary Comments denies N/T PT-OP-J Posture/Palpation/Skin Start: 10/06/21 08:03 Freq: Status: Active Protocol: Document 10/06/21 11:22 SAK (Rec: 10/07/21 17:09 [facility] [id number]) Posture Evaluation Position Standing Head/C-Spine Posture Forward Head T-Spine Posture Increased Kyphosis L-Spine Posture Shifted Right Scapula Posture (R) Protracted,(L) Retracted Arm Posture (L) Internally Rotated,(R) Internally Rotated Pelvis Posture Anteriorly Tilted Weight Distribution Weight Shifted Right Ankle/Foot Posture (L) Pronated,(R) Pronated Foot Arch (L) Low Arch,(R) Low Arch Palpation Assessment Location IT band Palpation Location rodoflo Palpation Findings Tenderness SI Palpation Location right Palpation Details no tenderness today PT-OP-K Range of Motion Start: 10/06/21 08:03 Freq: Status: Active Protocol: Document 10/06/21 11:22 [facility] (Rec: 10/07/21 17:09 [facility] [id number]) Lumbar Spine Range of Motion Lumbar Spine Active Flexion 40 Extension 15 Rotation Left 30 Rotation Right 30 Lateral Flexion Left 25 Lateral Flexion Right 25 Comments pain with right sidebending and forward flexion Hip Goniometric Range of Motion Hip rodolfo Comments mod piriformis tightness right greater than left, mild hamstring tightness left greater than right Hip ROM Limitations Hip ROM Limitations Soft Tissue Tightness,Pain PT-OP-L Special Tests Start: 10/06/21 08:03 Freq: Status: Active Protocol: Document 10/06/21 11:22 [facility] (Rec: 10/07/21 17:09 [facility] [id number]) Special Tests Lumbar Spine Special Tests Manual Traction Test Results negative Straight Leg Raise Test Results negative Compression Test Results negative PT-OP-M Strength Start: 10/06/21 08:03 Freq: Status: Active Protocol: Document 10/06/21 11:22 [facility] (Rec: 10/07/21 17:09 [facility] [id number]) Hip Strength Hip Manual Muscle Testing Right Flexion (L2) 4- Good- Extension (S1) 3+ Fair+ Abduction 4- Good- External Rotation 3+ Fair+ Internal Rotation 4 Good Left Flexion (L2) 4- Good- Extension (S1) 3+ Fair+ Abduction 4- Good- External Rotation 4- Good- Internal Rotation 4 Good Knee Strength Knee Manual Muscle Testing Right Flexion (S2) 4 Good Extension (L3) 4 Good Left Flexion (S2) 5 Normal Extension (L3) 5 Normal Ankle/Foot Strength Ankle and Foot Manual Muscle Testing Right Dorsiflexion (L4) 4 Good Plantarflexion (S1) 4 Good Left Dorsiflexion (L4) 5 Normal Plantarflexion (S1) 5 Normal PT-OP-Q Treatments Start: 10/06/21 08:03 Freq: Status: Active Protocol: Document 10/27/21 12:11 [facility] (Rec: 10/27/21 12:21 [facility] [id number]) Cardio Equipment Recumbent Stepper (Sci-Fit) Duration (Minutes) 8 Resistance 1 Seat Position 10 Other cues for neutral LE alignment, second 4 min LE's only Therapeutic Exercises Sitting Exercises HC stretch Reps/Minutes 2x30 HS stretch Reps/Minutes 2x30 Standing Exercises squat Equipment Used mirror, yardstick Reps/Minutes 12x Comments visual, verbal, and tactile cues for hip hinge, knee behind toes monster walks Standing Exercise Name fwd,bck,sideways Reps/Minutes 10'x2 each Manual Therapy Treatment Soft Tissue Mobilization IT band Body Location also lateral quad and lateral hamstring Mobilization Type Instrument Assisted,Myofascial Release,Rolling Taping IT band Body Location right Treatment Focus inhibition and pain management Type of Tape kinesiotape Skin Inspection intact Comments instrsucted to remove if uncomfortable or itchy, remove no less than 5 days Self-Care/Home Management Treatment Education Patient Education Body Mechanics,Home Exercise Program,Pain Management, Posture Other Education updated HEP PT-OP-T Assessment and Plan Start: 10/06/21 08:03 Freq: Status: Active Protocol: Document 10/27/21 12:11 [facility] (Rec: 10/27/21 12:21 [facility] [id number]) Physical Therapy Assessment Impairments Impairments Activity Tolerance,Pain, Strength Goals Three Impairment habitual body positioning contributing to pain and dysfunction Short Term Goal (STG) Patient to do self-assessment regarding her habitual positioning and movement and discuss with PT STG Duration 10/19/21 Truck Bench Mechanic Goal (LTG) Patient will demonstrate good awareness and self-correction of habitual positioning and movements contributing to her pain LTG Duration 12/06/21 Two Impairment weakness rodolfo LE's and core, dec ROM Impairment no HEP Short Term Goal (STG) Patient will be instructed in progressiveHEP to address weakness and decreased flexibility STG Duration 10/19/21 Truck Bench Mechanic Goal (LTG) Patient to be independent and compliant with HEP and demonstrate improved strength to at least 4+/5 all muscle groups in core and hips, and flexiblity WNL for improved support and function of core and hips. LTG Duration 12/06/21 One Impairment pain right lateral thigh Impairment pain as high as 6/10 Short Term Goal (STG) Decrease intensity and frequency of pain by 50% STG Duration 11/05/21 [facility]iary Goal (LTG) Pain no higher than 2/10 with patient able to sleep through the night and resume prior level of function. LTG Duration 12/06/21 Assessment Summary Assessment Improved stretch achieved with seated hamstring stretch with df for HC stretch as well, emphasized neutral and IR position for stretch. Also bijan redding walks all direction well and added to HEP. Trial kinesiotape for inhibition IT band. Physical Therapy Plan Frequency and Duration Frequency of Treatment 2x/Week Duration of Treatment 8 weeks Plan of Care Start Date 10/06/21 Plan of Care End Date 12/06/21 Therapeutic Interventions Therapeutic Interventions Aquatic Therapy,Home Exercise Program,Manual Therapy, Neuromuscular Re-education, Patient/Caregiver Education, Self-Care/Home Management,Soft Tissue Mobilization,Taping, Therapeutic Activities, Therapeutic Exercises Modalities Cold Pack/Ice Massage,Electric Stimulation,Hot Packs, Infrared Therapy,Traction- Mechanical,Ultrasound Next Visit Focus/Plan Next Note Type Treatment Note Next Visit Plan Continue therapeutic exercise progression, manual techniques to decrease pain, improve activity tolerance. Consider adding squats (pain-free ROM) to HEP if improved performance
--- NOTE | 2021-11-03 12:14 | PT.OTN ---
Current Diagnoses Low back pain, unspecified (11/03/21) Pain in right leg (11/03/21) Physical Therapy Treatment Note PT-OP-A Visit Information Start: 10/06/21 08:03 Freq: Status: Active Protocol: Document 11/03/21 11:20 [facility]AK (Rec: 11/03/21 12:13 [facility] [id number]) Out-Patient Physical Therapy Visit Information Visit Information Visit Type Treatment Note Visit Start Time 11:20 Visit Stop Time 12:05 Total Visit Minutes 45 Visit Number 4 Precautions Precautions osteopenia PT-OP-B Current Condition Start: 10/06/21 08:03 Freq: Status: Active Protocol: Document 10/08/21 11:24 SAK (Rec: 10/08/21 12:01 [facility] [id number]) Current Condition History of Current Condition Onset Date 1 1/2 years ago Current Complaints lateral right thigh pain History of Current Condition comes and goes throughout the day and while in bed. Can't pinpoint what inc or dec pain. Hasn't tried ice or heat or medications Prior Treatments and Tests No imaging Future Testing and Treatments Planned No further appointment scheduled with physician PT-OP-C Subjective Start: 10/06/21 08:03 Freq: Status: Active Protocol: Document 11/03/21 11:20 [facility] (Rec: 11/03/21 12:13 [facility] [id number]) OP-PT Subjective Patient Comments Patient Comments Hasn't had much time to work on herself due to 's issues and having company. PT-OP-H Neuro Start: 10/06/21 08:03 Freq: Status: Active Protocol: Document 10/06/21 11:22 [facility] (Rec: 10/07/21 17:09 [facility] [id number]) Sensation Evaluation Gross Sensation Gross Sensation WNL Comments Summary Comments denies N/T PT-OP-J Posture/Palpation/Skin Start: 10/06/21 08:03 Freq: Status: Active Protocol: Document 10/06/21 11:22 [facility] (Rec: 10/07/21 17:09 [facility] [id number]) Posture Evaluation Position Standing Head/C-Spine Posture Forward Head T-Spine Posture Increased Kyphosis L-Spine Posture Shifted Right Scapula Posture (R) Protracted,(L) Retracted Arm Posture (L) Internally Rotated,(R) Internally Rotated Pelvis Posture Anteriorly Tilted Weight Distribution Weight Shifted Right Ankle/Foot Posture (L) Pronated,(R) Pronated Foot Arch (L) Low Arch,(R) Low Arch Palpation Assessment Location IT band Palpation Location rodolfo Palpation Findings Tenderness SI Palpation Location right Palpation Details no tenderness today PT-OP-K Range of Motion Start: 10/06/21 08:03 Freq: Status: Active Protocol: Document 10/06/21 11:22 [facility] (Rec: 10/07/21 17:09 [facility] [id number]) Lumbar Spine Range of Motion Lumbar Spine Active Flexion 40 Extension 15 Rotation Left 30 Rotation Right 30 Lateral Flexion Left 25 Lateral Flexion Right 25 Comments pain with right sidebending and forward flexion Hip Goniometric Range of Motion Hip rodolfo Comments mod piriformis tightness right greater than left, mild hamstring tightness left greater than right Hip ROM Limitations Hip ROM Limitations Soft Tissue Tightness,Pain PT-OP-L Special Tests Start: 10/06/21 08:03 Freq: Status: Active Protocol: Document 10/06/21 11:22 [facility] (Rec: 10/07/21 17:09 [facility] [id number]) Special Tests Lumbar Spine Special Tests Manual Traction Test Results negative Straight Leg Raise Test Results negative Compression Test Results negative PT-OP-M Strength Start: 10/06/21 08:03 Freq: Status: Active Protocol: Document 10/06/21 11:22 [facility] (Rec: 10/07/21 17:09 [facility] [id number]) Hip Strength Hip Manual Muscle Testing Right Flexion (L2) 4- Good- Extension (S1) 3+ Fair+ Abduction 4- Good- External Rotation 3+ Fair+ Internal Rotation 4 Good Left Flexion (L2) 4- Good- Extension (S1) 3+ Fair+ Abduction 4- Good- External Rotation 4- Good- Internal Rotation 4 Good Knee Strength Knee Manual Muscle Testing Right Flexion (S2) 4 Good Extension (L3) 4 Good Left Flexion (S2) 5 Normal Extension (L3) 5 Normal Ankle/Foot Strength Ankle and Foot Manual Muscle Testing Right Dorsiflexion (L4) 4 Good Plantarflexion (S1) 4 Good Left Dorsiflexion (L4) 5 Normal Plantarflexion (S1) 5 Normal PT-OP-Q Treatments Start: 10/06/21 08:03 Freq: Status: Active Protocol: Document 11/03/21 11:20 [facility] (Rec: 11/03/21 12:13 [facility] [id number]) Cardio Equipment Recumbent Stepper (Sci-Fit) Duration (Minutes) 8 Resistance 1.5 Seat Position 10 Other cues for neutral LE alignment, second 4 min LE's only Gym Equipment Shuttle Balance chains red Details EO bal and wt shift Therapeutic Exercises Standing Exercises squat Equipment Used mirror, yardstick Reps/Minutes 12x Comments visual, verbal, and tactile cues for hip hinge, knee behind toes monster walks Standing Exercise Name HEP; bought own bands Manual Therapy Treatment Soft Tissue Mobilization IT band Body Location also lateral quad and lateral hamstring Mobilization Type Instrument Assisted,Myofascial Release,Rolling Taping IT band Comments not done, patient not sure helpful Self-Care/Home Management Treatment Education Patient Education Body Mechanics,Home Exercise Program,Pain Management, Posture Other Education updated HEP PT-OP-R Modalities Start: 10/06/21 08:03 Freq: Status: Active Protocol: Document 11/03/21 11:20 [facility] (Rec: 11/03/21 12:13 [facility] [id number]) Hot Pack/Cold Pack Treatment Hot Pack Patient Position Sidelying Treatment Duration (minutes) 15 Patient Tolerance Good PT-OP-T Assessment and Plan Start: 10/06/21 08:03 Freq: Status: Active Protocol: Document 11/03/21 11:20 [facility] (Rec: 11/03/21 12:13 [facility] [id number]) Physical Therapy Assessment Impairments Impairments Activity Tolerance,Pain, Strength Goals Three Impairment habitual body positioning contributing to pain and dysfunction Short Term Goal (STG) Patient to do self-assessment regarding her habitual positioning and movement and discuss with PT STG Duration 10/19/21 Senior Living Goal (LTG) Patient will demonstrate good awareness and self-correction of habitual positioning and movements contributing to her pain LTG Duration 12/06/21 Two Impairment weakness rodolfo LE's and core, dec ROM Impairment no HEP Short Term Goal (STG) Patient will be instructed in progressiveHEP to address weakness and decreased flexibility STG Duration 10/19/21 Chief Development Officer Goal (LTG) Patient to be independent and compliant with HEP and demonstrate improved strength to at least 4+/5 all muscle groups in core and hips, and flexiblity WNL for improved support and function of core and hips. LTG Duration 12/06/21 One Impairment pain right lateral thigh Impairment pain as high as 6/10 Short Term Goal (STG) Decrease intensity and frequency of pain by 50% STG Duration 11/05/21 Chief Development Officer Goal (LTG) Pain no higher than 2/10 with patient able to sleep through the night and resume prior level of function. LTG Duration 12/06/21 Assessment Summary Assessment Patient demonstrating improving body awareness, reporting less time at 6/10 pain. Not much time to do HEP or self-massage due to 's health issues as well as company. Physical Therapy Plan Frequency and Duration Frequency of Treatment 2x/Week Duration of Treatment 8 weeks Plan of Care Start Date 10/06/21 Plan of Care End Date 12/06/21 Therapeutic Interventions Therapeutic Interventions Aquatic Therapy,Home Exercise Program,Manual Therapy, Neuromuscular Re-education, Patient/Caregiver Education, Self-Care/Home Management,Soft Tissue Mobilization,Taping, Therapeutic Activities, Therapeutic Exercises Modalities Cold Pack/Ice Massage,Electric Stimulation,Hot Packs, Infrared Therapy,Traction- Mechanical,Ultrasound Next Visit Focus/Plan Next Note Type Treatment Note Next Visit Plan Continue therapeutic exercise progression, manual techniques to decrease pain, improve activity tolerance.
--- NOTE | 2022-01-27 10:47 | PT.OPDS ---
Current Diagnoses Low back pain, unspecified (11/03/21) Pain in right leg (11/03/21) Visit Care Team Role Provider Type DAPHNE Pretty Attending Provider [employer] Family Provider Primary Care Provider Referring Provider Specialty: [facility] Practice Address: [address] [place] [address], [facility] Email: [email or web address] Visit Number Visit Number 4 Discharge Summary PT-OP-B Current Condition Start: 10/06/21 08:03 Freq: Status: Active Protocol: Document 10/08/21 11:24 SAK (Rec: 10/08/21 12:01 [facility] [id number]) Current Condition History of Current Condition Onset Date 1 1/2 years ago Current Complaints lateral right thigh pain History of Current Condition comes and goes throughout the day and while in bed. Can't pinpoint what inc or dec pain. Hasn't tried ice or heat or medications Prior Treatments and Tests No imaging Future Testing and Treatments Planned No further appointment scheduled with physician PT-OP-C Subjective Start: 10/06/21 08:03 Freq: Status: Active Protocol: Document 11/03/21 11:20 SAK (Rec: 11/03/21 12:13 [facility] [id number]) OP-PT Subjective Patient Comments Patient Comments Hasn't had much time to work on herself due to 's issues and having company. PT-OP-H Neuro Start: 10/06/21 08:03 Freq: Status: Active Protocol: Document 10/06/21 11:22 SAK (Rec: 10/07/21 17:09 [facility] [id number]) Sensation Evaluation Gross Sensation Gross Sensation WNL Comments Summary Comments denies N/T PT-OP-J Posture/Palpation/Skin Start: 10/06/21 08:03 Freq: Status: Active Protocol: Document 10/06/21 11:22 SAK (Rec: 10/07/21 17:09 [facility] [id number]) Posture Evaluation Position Standing Head/C-Spine Posture Forward Head T-Spine Posture Increased Kyphosis L-Spine Posture Shifted Right Scapula Posture (R) Protracted,(L) Retracted Arm Posture (L) Internally Rotated,(R) Internally Rotated Pelvis Posture Anteriorly Tilted Weight Distribution Weight Shifted Right Ankle/Foot Posture (L) Pronated,(R) Pronated Foot Arch (L) Low Arch,(R) Low Arch Palpation Assessment Location IT band Palpation Location rodolfo Palpation Findings Tenderness SI Palpation Location right Palpation Details no tenderness today PT-OP-K Range of Motion Start: 10/06/21 08:03 Freq: Status: Active Protocol: Document 10/06/21 11:22 [facility] (Rec: 10/07/21 17:09 [facility] [id number]) Lumbar Spine Range of Motion Lumbar Spine Active Flexion 40 Extension 15 Rotation Left 30 Rotation Right 30 Lateral Flexion Left 25 Lateral Flexion Right 25 Comments pain with right sidebending and forward flexion Hip Goniometric Range of Motion Hip rodolfo Comments mod piriformis tightness right greater than left, mild hamstring tightness left greater than right Hip ROM Limitations Hip ROM Limitations Soft Tissue Tightness,Pain PT-OP-L Special Tests Start: 10/06/21 08:03 Freq: Status: Active Protocol: Document 10/06/21 11:22 [facility] (Rec: 10/07/21 17:09 [facility] [id number]) Special Tests Lumbar Spine Special Tests Manual Traction Test Results negative Straight Leg Raise Test Results negative Compression Test Results negative PT-OP-M Strength Start: 10/06/21 08:03 Freq: Status: Active Protocol: Document 10/06/21 11:22 [facility] (Rec: 10/07/21 17:09 [facility] [id number]) Hip Strength Hip Manual Muscle Testing Right Flexion (L2) 4- Good- Extension (S1) 3+ Fair+ Abduction 4- Good- External Rotation 3+ Fair+ Internal Rotation 4 Good Left Flexion (L2) 4- Good- Extension (S1) 3+ Fair+ Abduction 4- Good- External Rotation 4- Good- Internal Rotation 4 Good Knee Strength Knee Manual Muscle Testing Right Flexion (S2) 4 Good Extension (L3) 4 Good Left Flexion (S2) 5 Normal Extension (L3) 5 Normal Ankle/Foot Strength Ankle and Foot Manual Muscle Testing Right Dorsiflexion (L4) 4 Good Plantarflexion (S1) 4 Good Left Dorsiflexion (L4) 5 Normal Plantarflexion (S1) 5 Normal PT-OP-T Assessment and Plan Start: 10/06/21 08:03 Freq: Status: Active Protocol: Document 01/27/22 10:46 [facility] (Rec: 01/27/22 10:47 [facility] [id number]) Physical Therapy Plan Discharge Physical Therapy Discharge Reasons Patient Request Discharge Comments unable to attend due to dealing with 's medical issues.
== END 2022-02-02 09:37 | disposition home or self-care (01) ==
LOC: PHYS 11:15
PROVIDERS: Family Provider Nurse Practitioner; PCP Nurse Practitioner; Referring Provider Nurse Practitioner; Visit Provider Nurse Practitioner
DX: M54.50 Low back pain, unspecified (principal); M79.604 Pain in right leg
CPT/HCPCS: 97110; 97140; 97161; 97535

== ENCOUNTER → 2022-05-05 11:16 | Outpatient (CLI) | payer MEDICARE, OTHER, SELFPAY ==
[2022-05-05 12:54] LABS: Alanine Aminotransferase 32 IU/L (<35); Albumin 4.4 g/dL (3.5-5.0); Albumin Globulin Ratio 1.5 (1.0-2.8); Alkaline Phosphatase 78 U/L (38-126); Aspartate Aminotransferase 33 IU/L (14-36); BUN Creatinine Ratio 21.1 (6-22); Bilirubin Total 0.4 mg/dL (0.2-1.3); Blood Urea Nitrogen 16 mg/dL (7-17); Calcium 9.6 mg/dL (8.4-10.2); Carbon Dioxide 31 mmol/L (22-32); Chloride 99 mmol/L (98-107); Estimated Glomerular Filt Rate > 60 mL/min (>60); Globulin 2.9 g/dL (1.7-4.1); Glucose 147 mg/dL (80-110); HEMOLYSIS < 15 (0-50); Potassium 4.6 mmol/L (3.4-5.1); Sodium 136 mmol/L (137-145); Total Protein 7.3 g/dL (6.3-8.2)
[2022-05-05 13:07] LABS: Free T3, Triiodothyronine Free 4.41 pg/mL (2.77-5.27)
[2022-05-05 13:20] LABS: Thyroid Stimulating Hormone 2.75 uIU/mL (0.47-4.68)
[2022-05-05 16:06] LABS: Creatinine Urine Random 152.4 mg/dL
[2022-05-05 16:19] LABS: Microalbumin Urine Random < 0.6 mg/dL (0-1.6)
[2022-05-06 16:29] LABS: Hep C Virus Ab w/Reflex Quant NEGATIVE s/c (NEGATIVE)
== END ==
PROVIDERS: Family Provider Nurse Practitioner; PCP Nurse Practitioner; Referring Provider Nurse Practitioner; Visit Provider Nurse Practitioner
DX: I10 Essential (primary) hypertension (principal); M85.80 Other specified disorders of bone density and structure, unspecified site; Z11.59 Encounter for screening for other viral diseases; Z79.899 Other long term (current) drug therapy
CPT/HCPCS: 36415; 80053; 82043; 82570; 84439; 84443; 84481; 86803

== ENCOUNTER → 2022-08-12 08:24 | Outpatient (CLI) | payer MEDICARE, OTHER, SELFPAY ==
[2022-08-12 09:26] LABS: Alanine Aminotransferase 31 IU/L (<35); Albumin 4.6 g/dL (3.5-5.0); Albumin Globulin Ratio 1.5 (1.0-2.8); Alkaline Phosphatase 82 U/L (38-126); Aspartate Aminotransferase 32 IU/L (14-36); BUN Creatinine Ratio 27.4 (6-22); Bilirubin Total 0.4 mg/dL (0.2-1.3); Blood Urea Nitrogen 17 mg/dL (7-17); Calcium 9.4 mg/dL (8.4-10.2); Carbon Dioxide 29 mmol/L (22-32); Chloride 101 mmol/L (98-107); Cholesterol 214 mg/dL (140-199); Estimated Glomerular Filt Rate > 60 mL/min (>60); Glucose 115 mg/dL (80-110); HDL Cholesterol 106 mg/dL (40-60); HEMOLYSIS < 15 (0-50); LDL Cholesterol Calculated 94 mg/dL (<100); Potassium 4.5 mmol/L (3.4-5.1); Sodium 137 mmol/L (137-145); Total Protein 7.6 g/dL (6.3-8.2); Triglycerides 72 mg/dL (35-150)
[2022-08-13 05:47] LABS: Labcorp Hemoglobin (Hb) A1c 5.4 % (4.8-5.6)
== END ==
PROVIDERS: Family Provider Nurse Practitioner; PCP Nurse Practitioner; Referring Provider Nurse Practitioner; Visit Provider Nurse Practitioner
DX: E78.2 Mixed hyperlipidemia; I10 Essential (primary) hypertension; R73.01 Impaired fasting glucose
CPT/HCPCS: 36415; 80053; 80061; 83036

== ENCOUNTER → 2022-11-09 13:13 | Outpatient (CLI) | payer MEDICARE, OTHER, SELFPAY ==
--- NOTE | 2022-11-09 | DI.MG.S_ITS ---
BILATERAL DIGITAL SCREENING MAMMOGRAM 3D/2D WITH CAD: 11/09/2022 CLINICAL: Routine screening. Family history of breast cancer. Comparison is made to exams dated: 10/07/2021 mammogram, 01/29/2020 mammogram - [facility], and 12/07/2016 mammogram - outside location. Both breasts are heterogeneously dense, which may obscure small masses (category c / 51-75% glandular tissue). Current study was also evaluated with a Computer Aided Detection (CAD) system. No significant masses, calcifications, or other findings are seen in either breast. IMPRESSION: NEGATIVE There is no mammographic evidence of malignancy. A 1 year screening mammogram is recommended. Based on Tyrer-Cuzick model (a risk assessment model), the patient's lifetime risk is 20.0% and her 10 year risk is 11.4%. If a patient has an elevated risk, a more comprehensive evaluation should be considered and/or a referral to a genetic counselor. The [employer], [employer], and NCCN Guidelines advise the consideration of Breast MRI as an adjunct to screening mammography in patients whose Lifetime risk to develop breast cancer is 20% or higher. This exam was interpreted at Station ID: [id number]. NOTE: For mammograms, a report in lay terms will be sent to the patient. Approximately 15% of breast malignancies will not be visualized mammographically. In the management of a palpable breast mass, a negative mammogram must not discourage biopsy of a clinically suspicious lesion. Electronically Signed By: Andrew luna/rudolph:11/09/2022 17:41:30 letter sent: Normal Exam ACR BI-RADS Category 1: Negative 3341F
== END ==
PROVIDERS: Family Provider Nurse Practitioner; PCP Nurse Practitioner; Referring Provider Nurse Practitioner; Visit Provider Nurse Practitioner
DX: Z12.31 Encounter for screening mammogram for malignant neoplasm of breast (principal); Z80.3 Family history of malignant neoplasm of breast
CPT/HCPCS: 77063; 77067

== ENCOUNTER → 2023-01-13 16:29 | Outpatient (CLI) | payer MEDICARE, OTHER, SELFPAY ==
--- NOTE | 2023-01-13 16:35 | DI.RAD.S_ITS ---
PROCEDURE: XR HIP W PEL IF DONE RT 2V INDICATIONS: chronic pain to gluteal area TECHNIQUE: AP pelvis with lateral view(s) of the right hip(s). COMPARISON: None. FINDINGS: Bones: No fractures or dislocations. Pelvic ring appears intact. No suspicious bony lesions mild right hip osteoarthritis with osseous hypertrophy.. Soft tissues: The visualized bowel gas pattern is normal. No suspicious soft tissue calcifications. IMPRESSION: Mild right hip osteoarthritis. Dictated by: Stephanie Hanna MD, PhD on 01/13/2023 at 16:51 Approved by: Stephanie Hanna MD, PhD on 01/13/2023 at 16:51
== END ==
PROVIDERS: Family Provider Nurse Practitioner; PCP Nurse Practitioner; Referring Provider Physician Assistant; Visit Provider Physician Assistant
DX: M16.11 Unilateral primary osteoarthritis, right hip (principal); M25.551 Pain in right hip
CPT/HCPCS: 73502

== ENCOUNTER → 2023-02-21 12:30 | Outpatient (CLI) | payer MEDICARE, OTHER, SELFPAY ==
--- NOTE | 2023-02-21 12:32 | DI.MRI.S_ITS ---
PROCEDURE: MR HIP RT WO CON INDICATIONS: eval/treat TECHNIQUE: Noncontrast coronal T1 spin echo and STIR through the bony pelvis. Coronal and axial T2 fast spin echo with fat saturation, sagittal T1 spin echo, and oblique axial T2 fast spin echo with fat saturation through the hip. COMPARISON: None. FINDINGS: Image quality: Excellent. Bones and joints: Nivx-bn-ylvbywly bilateral hip joint osteoarthritic changes are seen with superior joint space narrowing, subchondral sclerosis and small lateral marginal osteophyte formation. There is mild prominence of superior anterior right femoral head neck junction which can be seen associated with CAM type femoral acetabular impingement. No intraosseous lesions or fractures. No avascular necrosis of the femoral heads. The visualized lower lumbar spine appears normally aligned. Tendons and ligaments: Distal right gluteus medius tendinosis and low-grade partial-thickness tear at its insertion on greater trochanter is seen. Distal right gluteus minimus tendinosis is also seen. The nearby proximal iliotibial band also appears intact. The iliopsoas tendon appears intact, without adjacent bursal fluid collections or evidence for impingement syndrome. Mild tendinosis involving origins of the hamstring tendons at ischial tuberosity is also noted. Labrum and cartilage: Mild thinning of cartilage over right femoral head is seen. Subtle fraying of superior anterior right hip labrum at 1 to 2 o'clock position concerning for very subtle superior anterior right hip labral tear. The alpha angle of the femur is within normal limits at less than 55 degrees. Soft tissues: Visualized muscles demonstrate normal bulk and internal signal. Quadratus femoris muscle demonstrates no internal edema to suggest ischiofemoral impingement. The proximal sciatic neurovascular bundle appears normal adjacent to the hamstring tendons. No free pelvic fluid. Bladder wall thickness is normal. Genitourinary structures and bowel loops appear normal where visualized. IMPRESSION: 1. Finding is concerning for subtle superior anterior right hip labral tear at 1 to 2 o'clock position. 2. Idpr-fn-iebqjusu bilateral hip joint osteoarthritis. No hip fracture or dislocation. No evidence of avascular necrosis. Mild prominence of superior anterior right femoral head neck junction which can be seen associated with CAM type femoral acetabular impingement. 3. Distal right gluteus medius tendinosis and low-grade partial-thickness tear and distal right gluteus minimus tendinosis. Tendinosis also seen involving hamstring origins at right ischial tuberosity. No other muscle or tendon signal abnormalities. Dictated by: Josh Rangel M.D. on 02/21/2023 at 14:35 Approved by: Josh Rangel M.D. on 02/21/2023 at 14:47
== END ==
PROVIDERS: Family Provider Nurse Practitioner; PCP Nurse Practitioner; Referring Provider Physician Assistant; Visit Provider Physician Assistant
DX: S76.011A Strain of muscle, fascia and tendon of right hip, initial encounter (principal); M16.0 Bilateral primary osteoarthritis of hip; M25.551 Pain in right hip
CPT/HCPCS: 73721

== ENCOUNTER → 2023-08-03 07:15 | Outpatient (CLI) | payer MEDICARE, OTHER, SELFPAY ==
[2023-08-03 07:58] LABS: Hemoglobin A1C% w Est Avg Glu 5.2 % (4.0-6.0)
[2023-08-03 08:19] LABS: Alanine Aminotransferase 21 IU/L (<35); Albumin 4.3 g/dL (3.5-5.0); Albumin Globulin Ratio 1.6 (1.0-2.8); Alkaline Phosphatase 59 U/L (38-126); Aspartate Aminotransferase 25 IU/L (14-36); BUN Creatinine Ratio 26.3 (6-22); Bilirubin Total 0.4 mg/dL (0.2-1.3); Blood Urea Nitrogen 20 mg/dL (7-17); Calcium 9.3 mg/dL (8.4-10.2); Carbon Dioxide 28 mmol/L (22-32); Chloride 107 mmol/L (98-107); Cholesterol 186 mg/dL (140-199); Estimated Glomerular Filt Rate > 60 mL/min (>60); Globulin 2.7 g/dL (1.7-4.1); Glucose 90 mg/dL (80-110); HDL Cholesterol 84 mg/dL (40-60); HEMOLYSIS < 15 (0-50); LDL Cholesterol Calculated 83 mg/dL (<100); Potassium 4.1 mmol/L (3.4-5.1); Sodium 139 mmol/L (137-145); Triglycerides 95 mg/dL (35-150)
[2023-08-03 08:23] LABS: Free T3, Triiodothyronine Free 3.98 pg/mL (2.77-5.27)
[2023-08-03 08:24] LABS: Free T4, Direct Thyroxine 1.49 ng/dL (0.78-2.19)
[2023-08-03 08:25] LABS: Microalbumi Creatinin Ratio Ur 4.8 ug/mg CR (<30); Microalbumin Urine Random 1.6 mg/dL (0-1.6)
[2023-08-03 08:37] LABS: Thyroid Stimulating Hormone 3.12 uIU/mL (0.47-4.68)
== END ==
PROVIDERS: Family Provider Nurse Practitioner; PCP Nurse Practitioner; Referring Provider Nurse Practitioner; Visit Provider Nurse Practitioner
DX: R73.01 Impaired fasting glucose (principal); I10 Essential (primary) hypertension; M85.80 Other specified disorders of bone density and structure, unspecified site; E78.5 Hyperlipidemia, unspecified
CPT/HCPCS: 36415; 80053; 80061; 82043; 82570; 83036; 84439; 84443; 84481

== ENCOUNTER → 2023-11-11 09:43 | Outpatient (CLI) | payer MEDICARE, OTHER, SELFPAY ==
--- NOTE | 2023-11-11 09:44 | DI.MG.S_ITS ---
BILATERAL DIGITAL SCREENING MAMMOGRAM 3D/2D WITH CAD: 11/11/2023 CLINICAL: Routine screening. Family history of breast cancer. Comparison is made to exams dated: 11/09/2022 mammogram, 10/07/2021 mammogram, and 01/29/2020 mammogram - [facility]. Both breasts are heterogeneously dense, which may obscure small masses (category c / 51-75% glandular tissue). Current study was also evaluated with a Computer Aided Detection (CAD) system. No significant masses, calcifications, or other findings are seen in either breast. There has been no significant interval change. IMPRESSION: NEGATIVE There is no mammographic evidence of malignancy. A 1 year screening mammogram is recommended. Based on the Tyrer Cuzick model (a risk assessment model) the patient's lifetime risk is 19.0% and her 10 year risk is 11.5%. According to the ACR, ACS, and NCCN guidelines, an annual breast MRI exam along with mammogram is recommended if the patient's lifetime risk is 20% or greater. This exam was interpreted at Station ID: [id number]. NOTE: For mammograms, a report in lay terms will be sent to the patient. Approximately 15% of breast malignancies will not be visualized mammographically. In the management of a palpable breast mass, a negative mammogram must not discourage biopsy of a clinically suspicious lesion. Electronically Signed By: Andrew luna/rudolph:11/11/2023 13:39:35 letter sent: Normal Exam ACR BI-RADS Category 1: Negative 3341F
--- NOTE | 2023-11-11 09:44 | DI.RAD.S_ITS ---
PROCEDURE: XR DEXA AXIAL SKELETON INDICATIONS: post menopausal osteoporosis COMPARISON: [facility], CR, XR DEXA AXIAL SKELETON, 10/07/2021, 14:32. FINDINGS: Lumbar Spine: Bone mineral density 0.47 g/cm2, T score -0.9 unchanged. Left Hip: Bone mineral density 0.791 g/cm2, T score -1.2, unchanged,. Left Femoral Neck: Bone mineral density 0.613 g/cm2, T score -2.1, compared to -1.8,. Right Hip: Bone mineral density 0.773 g/cm2, T score -1.4, unchanged. Right Femoral Neck: Bone mineral density 0.656 g/cm2, T score -1.7, unchanged. Fracture Risk Calculation (when applicable): 10-year fracture risk of a major osteoporotic fracture 11% and of a hip fracture 1.6%, compared to 9.7% and 1.2% respective. (T score greater or equal to -1.0 to: NORMAL) (T score from -1.1 to -2.4: OSTEOPENIA) (T score less than or equal to -2.5: OSTEOPOROSIS) IMPRESSION: Moderate to severe osteopenia within the left femoral neck, progressive. Remaining portions are unchanged. Follow-up guidelines as follows: Osteoporosis: Consider a repeat DEXA and Vertebral Fracture Assessment (VFA) exam in 2 years or sooner if medically necessary, to reassess this patient's status. Osteopenia: Consider a repeat DEXA in 2-3 years to reassess this patient's status, or if there is a new clinical indication. Normal: Consider a repeat DEXA in 5 years or sooner, or if there is a new clinical indication. All treatment decisions require clinical judgment and consideration of individual patient factors, including patient preferences, comorbidities, previous drug use, risk factors not captured in the FRAX model (e.g., frailty, falls, vitamin D deficiency, increased bone turnover, interval significant decline in bone density ) and possible under- or over-estimation of fracture risk by FRAX. In addition, the NOF Guide recommends that FDA-approved medical therapies be considered in postmenopausal women and men age >= 50 years with a: * Hip or vertebral (clinical or morphometric) fracture * T-score of <=-2.5 at the spine or hip * Ten-year fracture probability by FRAX of >= 3% for hip fracture or >=20% for major osteoporotic fracture. People with diagnosed cases of osteoporosis or at high risk for fracture should have regular bone mineral density tests. For patients eligible for Medicare, routine testing is allowed once every 2 years. The testing frequency can be increased to one year for patients who have rapidly progressing disease, those who are receiving or discontinuing medical therapy to restore bone mass, or have additional risk factors. Dictated by: Ioan Rodriguez M.D. on 11/11/2023 at 21:36 Approved by: Iona Rodriguez M.D. on 11/11/2023 at 21:38
== END ==
PROVIDERS: Family Provider Nurse Practitioner; PCP Nurse Practitioner; Referring Provider Nurse Practitioner; Visit Provider Nurse Practitioner
DX: Z80.3 Family history of malignant neoplasm of breast (principal); Z12.31 Encounter for screening mammogram for malignant neoplasm of breast; R92.333 Mammographic heterogeneous density, bilateral breasts; M81.0 Age-related osteoporosis without current pathological fracture
CPT/HCPCS: 77063; 77067; 77080

== ENCOUNTER → 2024-09-07 15:31 | Outpatient (CLI) | payer MEDICARE, OTHER, SELFPAY ==
--- NOTE | 2024-09-07 15:32 | DI.RAD.S_ITS ---
PROCEDURE: XR KNEE LT 3V INDICATIONS: Knee Pain, posterior TECHNIQUE: 3 views of the knee were acquired. COMPARISON: None. FINDINGS: Bones: No fractures or dislocations. No suspicious bony lesions. Soft tissues: Small joint effusion. No suspicious soft tissue calcifications. IMPRESSION: No acute bony abnormality or significant effusion. Dictated by: Manuel Vigil M.D. on 09/07/2024 at 21:15 Approved by: Manuel Vigil M.D. on 09/07/2024 at 21:15
== END ==
PROVIDERS: Family Provider Nurse Practitioner; PCP Nurse Practitioner Family; Referring Provider Nurse Practitioner Family; Visit Provider Nurse Practitioner Family
DX: M25.562 Pain in left knee (principal)
CPT/HCPCS: 73562

== ENCOUNTER → 2024-09-14 12:42 | Outpatient (CLI) | payer MEDICARE, OTHER, SELFPAY ==
--- NOTE | 2024-09-14 12:44 | DI.US.S_ITS ---
PROCEDURE: US PERIPH VENOUS LOW EXTREM LT INDICATIONS: lt knee swelling TECHNIQUE: Real-time imaging, as well as color and pulse Doppler interrogation, were performed of the lower extremity deep veins from the inguinal ligament to the popliteal fossa, with documentation of the visualized calf veins. Sixteen images. COMPARISON: None. FINDINGS: Anechoic simple fluid collection anterior aspect of the left knee measuring approximately 5.3 x 4.7 x 1.0 cm commonly represents suprapatellar knee joint effusion versus other soft tissue fluid collection. The common femoral, femoral, popliteal, and the visualized calf veins are normally compressible, and free of intraluminal thrombus. Color and pulse Doppler demonstrate normal phasic intraluminal flow. There is normal augmentation response to distal compression maneuver. IMPRESSION: Probable left knee joint effusion. No ultrasound evidence of deep vein thrombosis left lower extremity. Dictated by: Osiel Savage M.D. on 09/14/2024 at 13:27 Approved by: Osiel Savage M.D. on 09/14/2024 at 13:30
== END ==
PROVIDERS: Family Provider Nurse Practitioner; PCP Nurse Practitioner Family; Referring Provider Nurse Practitioner Family; Visit Provider Nurse Practitioner Family
DX: M25.562 Pain in left knee (principal); M25.462 Effusion, left knee; G89.29 Other chronic pain
CPT/HCPCS: 93971

== ENCOUNTER → 2024-10-07 09:40 | Outpatient (CLI) | payer MEDICARE, OTHER, SELFPAY ==
--- NOTE | 2024-10-07 09:42 | DI.MRI.S_ITS ---
PROCEDURE: MR KNEE LT WO CON INDICATIONS: r/o meniscus tear TECHNIQUE: Noncontrast sagittal PD fast spin echo and T2 fast spin echo with fat saturation, sagittal 3-D FLASH with fat saturation; coronal T1 spin echo and PD fast spin echo with fat saturation, and axial PD fast spin echo with fat saturation through the knee. COMPARISON: None. FINDINGS: Image quality: Excellent. Menisci: In the medial meniscus, there is high-grade radial tear involving the peripheral aspect of the posterior root and posterior horn junction. Mild extrusion of the medial meniscus body. The lateral meniscus is unremarkable. Cruciate ligaments: The anterior and posterior cruciate ligaments appear intact. Medial structures: The medial collateral ligament appears intact. The posterior oblique ligament, semimembranosus tendon insertions, oblique popliteal ligament, and meniscocapsular junction appear intact. Visualized portions of the pes anserinus tendons appear normal. No abnormal bursal fluid. Lateral structures: The lateral collateral ligament, long and short heads of the biceps femoris tendon appear intact. The popliteus tendon appears normal; the popliteofibular ligament appears intact. The posterosuperior and anteroinferior popliteomeniscal fascicles appear intact. The arcuate and fabellofibular ligaments appear intact, on either side of the lateral inferior geniculate artery. Iliotibial band appears normal. Anterior structures: Distal quadriceps enthesophyte. The quadriceps and the patellar tendon are otherwise intact. Patellar alignment is normal. No femoral trochlear dysplasia or ventral trochlear prominence. No edema in the infrapatellar fat pad. Bones and cartilage: The cartilage of the patellofemoral compartment is grossly well maintained. Mild chondrosis of the medial compartment. The cartilage of the lateral compartment is well maintained. Moderate subchondral cystic changes and marrow edema at the tibial eminence, reactive. Joint space: Moderate knee effusion. No popliteal cyst. Popliteal vasculature is unremarkable. No intra-articular body. IMPRESSION: 1. High-grade radial tear of the medial meniscus with mild extrusion of the medial meniscus body. 2. Mild chondrosis of the medial compartment. Dictated by: Valencia Meneses M.D. on 10/08/2024 at 17:20 Approved by: Valencia Meneses M.D. on 10/08/2024 at 17:31
== END ==
LOC: MRI 09:41
PROVIDERS: Family Provider Nurse Practitioner; PCP Nurse Practitioner Family; Referring Provider Nurse Practitioner Family; Visit Provider Orthopaedic Surgery
DX: S83.242A Other tear of medial meniscus, current injury, left knee, initial encounter (principal); M94.262 Chondromalacia, left knee; M25.562 Pain in left knee
CPT/HCPCS: 73721

== ENCOUNTER → 2024-12-12 14:34 | Outpatient (CLI) | payer MEDICARE, OTHER, SELFPAY ==
--- NOTE | 2024-12-12 14:36 | DI.MG.S_ITS ---
MM screening mammo BI: 12/12/2024. BI-RADS: 1 CLINICAL: 69-year old female for bilateral screening mammogram. Tyrer-Cuzick lifetime risk of 5.2%. No personal or first-degree family history of breast cancer. PRIOR EXAMS 11/11/2023, 11/09/2022, 10/07/2021, 01/29/2020. MAMMOGRAPHY TECHNIQUE: 2D and 3D (tomosynthesis) digital mammographic views obtained, with additional images as needed for full coverage. Current study was also evaluated with a Computer Aided Detection (CAD) system. DENSITY C. The breasts are heterogeneously dense, which may obscure small masses. MAMMOGRAPHY FINDINGS Bilateral: No suspicious mass, asymmetry, microcalcification, or other abnormality seen. No significant change from comparison. IMPRESSION: * No evidence of malignancy. RECOMMENDATIONS Bilateral * Annual screening mammography. OVERALL ASSESSMENT CATEGORY BI-RADS-1: Negative. The [employer] recommends annual screening mammography beginning at age 40 for women with average risk of breast cancer. ELECTRONICALLY SIGNED: Tye Crawford M.D. on 12/13/2024 at 10:12:01 AM PT Interpreting Station ID: [id number]
== END ==
LOC: MAMMO 14:35
PROVIDERS: Family Provider Nurse Practitioner; PCP Nurse Practitioner Family; Referring Provider Nurse Practitioner Family; Visit Provider Nurse Practitioner Family
DX: Z12.31 Encounter for screening mammogram for malignant neoplasm of breast (principal); R92.333 Mammographic heterogeneous density, bilateral breasts
CPT/HCPCS: 77063; 77067